=== PATIENT | female | born 1945 | race Caucasian/White ===

== ENCOUNTER 2017-02-09 09:40 | Inpatient (IN) | payer MEDICARE ==
[2017-02-06 11:19] LABS: BLOOD UREA NITROGEN 19 mg/dL (7-18)
[2017-02-06 11:22] LABS: PATH.CAST-FLAG NOT PRESENT; SPERM-FLAG NOT PRESENT; SRC-FLAG NOT PRESENT; XTAL-FLAG NOT PRESENT; YLC-FLAG NOT PRESENT
[2017-02-06 11:22] LABS: ASPARTATE AMINO TRANSFERASE 30 U/L (15-37)
[~2017-02-09] VITALS: Ht 167.6 cm; Wt 104.0 kg
[~2017-02-09 09:40] MED LIST: ASPI-621 PO; ATOR80TA75 PO; BUPIVACAINE/PF 0.5% ONE; CHOL10003 PO; CYAN25009 PO; EPINEPHRINE 1 MG/ML, 1ML ONE; FENTANYL PF 250 MCG/5ML ONE; FURO20TA3 PO; INSU100C5 SQ-INSULIN; INSU100V8 SQ; LEVO50TA5 PO; LISI40TA PO; METF10002 PO; METO25TA35 PO; MIDAZOLAM 1 MG/ML, 2ML ONE; NEOSPORIN OINT, 15GM ONE; OMEP-110 PO; PRIM50TA PO
[2017-02-09] MEDS ORDERED: LACTATED RINGERS 1,000 ML IV SCH (10:41)
[2017-02-09 10:46] VITALS: BP 121/64
[2017-02-09] MEDS ORDERED: EPINEPHRINE 1 MG/ML, 1ML ONE (13:51)
[2017-02-09] MEDS ORDERED: PROPOFOL 10 MG/ML, 20ML ONE (13:51)
[2017-02-09] MEDS ORDERED: CEFAZOLIN 1,000 MG ONE (13:51)
[2017-02-09] MEDS ORDERED: EPHEDRINE 50 MG/ML, 1ML ONE (13:51)
[2017-02-09] MEDS ORDERED: ROCURONIUM 10 MG/ML ONE (13:51)
[2017-02-09] MEDS ORDERED: SUCCINYLCHOLINE 20 MG/ML, 10ML ONE (13:51)
[2017-02-09] MEDS ORDERED: DIPHENHYDRAMINE 50 MG CAPSULE PO PRN (14:00)
[2017-02-09] MEDS ORDERED: PROMETHAZINE 25 MG/ML, 1ML IM PRN (14:00)
[2017-02-09] MEDS ORDERED: HYDROcodone/APAP 5/325 TABLET PO PRN (14:00)
[2017-02-09] MEDS ORDERED: ONDANSETRON 2MG/ML, 2ML IVPush PRN ×2 (14:00→14:30)
[2017-02-09] MEDS ORDERED: ACETAMINOPHEN 325 MG TABLET PO PRN (14:30)
[2017-02-09] MEDS ORDERED: METOCLOPRAMIDE 5 MG/ML, 2ML IV PRN (14:30)
[2017-02-09] MEDS ORDERED: LABETALOL 5MG/ML, 20ML IV PRN (14:30)
[2017-02-09] MEDS ORDERED: OXYcodone 5 MG/5 ML ORAL.SOL UDC PO PRN (14:30)
[2017-02-09] MEDS ORDERED: hydrALAzine 20 MG/ML, 1ML IV PRN (14:30)
[2017-02-09] MEDS ORDERED: HYDROmorphone 1 MG/ML, 1ML ONE (15:17)
[2017-02-09] MEDS ORDERED: FENTANYL PF 100 MCG/2ML ONE (15:17)
[2017-02-09] MEDS: FENTANYL PF 100 MCG/2ML IV PRN ×2 (15:20→15:30)
[2017-02-09] MEDS: HYDROmorphone 1 MG/ML, 1ML IV PRN ×4 (15:25→16:00)
[2017-02-09] MEDS ORDERED: ONDANSETRON 2MG/ML, 2ML ONE (15:25)
[2017-02-09] MEDS ORDERED: TEMPLATE NON-FORMULARY MED. (Insulin Aspart** (Novolog**) 0 UNITS) SQ-INSULIN SCH (16:00)
[2017-02-09] MEDS ORDERED: hydrALAzine 20 MG/ML, 1ML ONE (16:14)
[2017-02-09] MEDS: morphine SULFATE 10 MG/ML, 1ML IVPush PRN ×2 (17:25→19:09)
[2017-02-09] MEDS ORDERED: INSULIN ASPART 100 UNITS/ML, PEN SQ-INSULIN SCH (18:17)
[2017-02-09 18:40] VITALS: BP 125/74
[2017-02-09] MEDS: POTASSIUM CHLORIDE 20 MEQ in SODIUM CHLORIDE 0.9% 1,000 ML IV SCH (19:09)
[2017-02-09] MEDS ORDERED: ATORVASTATIN 80 MG TABLET PO SCH (21:00)
[2017-02-09] MEDS ORDERED: PRIMIDONE 50 MG TABLET PO SCH (21:00)
[2017-02-09] MEDS: metFORMIN 500 MG TABLET PO SCH (22:31)
[2017-02-09] MEDS: CEFAZOLIN PMX 2GM/50ML 50 ML IVPB SCH (22:34)
[2017-02-09] MEDS: OXYcodone/APAP 5/325MG TABLET PO PRN (22:35)
[2017-02-09 23:02] VITALS: BP 122/71
[2017-02-09] MEDS: INSULIN DETEMIR 100 UNITS/ML, PEN SQ-INSULIN SCH (23:35)
[2017-02-09] MEDS: INSULIN ASPART 100 UNITS/ML, PEN SQ-INSULIN SCH (23:35)
[2017-02-10 02:49] VITALS: BP 112/68
[2017-02-10] MEDS ORDERED: LEVOTHYROXINE 50 MCG TABLET PO SCH (06:00)
[2017-02-10] MEDS: CEFAZOLIN PMX 2GM/50ML 50 ML IVPB SCH (06:03)
[2017-02-10] MEDS: OXYcodone/APAP 5/325MG TABLET PO PRN (06:07)
[2017-02-10 06:53] VITALS: BP 105/63
[2017-02-10] MEDS ORDERED: OMEPRAZOLE 20 MG CAPSULE.DR PO SCH (07:30)
[2017-02-10] MEDS: POTASSIUM CHLORIDE 20 MEQ in SODIUM CHLORIDE 0.9% 1,000 ML IV SCH (07:45)
[2017-02-10] MEDS: INSULIN ASPART 100 UNITS/ML, PEN SQ-INSULIN SCH (07:46)
[2017-02-10] MEDS ORDERED: CHOLECALCIFEROL 1,000 UNIT TABLET PO SCH (09:00)
[2017-02-10] MEDS ORDERED: METOPROLOL TARTRATE 25 MG TABLET PO SCH (09:00)
[2017-02-10] MEDS ORDERED: LISINOPRIL 20 MG TABLET PO SCH (09:00)
[2017-02-10] MEDS ORDERED: FUROSEMIDE 20 MG TABLET PO SCH (09:00)
[2017-02-10] MEDS: INSULIN DETEMIR 100 UNITS/ML, PEN SQ-INSULIN SCH (09:46)
[2017-02-10] MEDS: metFORMIN 500 MG TABLET PO SCH (09:48)
[2017-02-10] MEDS ORDERED: OXYC-302 PO (11:04)
== END 2017-02-10 11:25 | disposition home or self-care (01) | DRG 459 ==
LOC: ORIP 10:17 → 4NOR 17:06 → DCLOUNGE 02-10 10:47
PROVIDERS: ADMIT Orthopaedic Surgery Orthopaedic Surgery of the Spine; ATTEND Orthopaedic Surgery Orthopaedic Surgery of the Spine
PROC: 0SG80ZZ (ICD-10-PCS; principal; 2017-02-09 12:30)
DX: M46.1 Sacroiliitis, not elsewhere classified (principal); N17.0 Acute kidney failure with tubular necrosis; Z95.1 Presence of aortocoronary bypass graft; Z98.1 Arthrodesis status; I25.10 Atherosclerotic heart disease of native coronary artery without angina pectoris; I11.9 Hypertensive heart disease without heart failure; M81.0 Age-related osteoporosis without current pathological fracture
CPT/HCPCS: 36415; 71020; 72202; 76001; 80053; 81001; 82962; 85025; 93005; J0171; J0690; J1170; J1815; J2250; J2405; J2550; J2704; J3010; J3480; J3490; C1762; C1776; J0330; J0360; J2270; J7030; J7120

== ENCOUNTER 2017-08-07 10:47 | Emergency (ER) | payer MEDICARE ==
[~2017-08-07] VITALS: Ht 167.6 cm; Wt 105.0 kg
[~2017-08-07 10:47] MED LIST changes: +ATOR-2 PO; -ATOR80TA75 PO; -BUPIVACAINE/PF 0.5% ONE; -EPINEPHRINE 1 MG/ML, 1ML ONE; -FENTANYL PF 250 MCG/5ML ONE; -MIDAZOLAM 1 MG/ML, 2ML ONE; -NEOSPORIN OINT, 15GM ONE; +OXYC-302 PO
[2017-08-07] MEDS ORDERED: SODIUM CHLORIDE 0.9% 1,000ML IVBOLUS ONE (11:00)
[2017-08-07 11:04] VITALS: BP 98/47
[2017-08-07 11:23] LABS: RAPID INFLUENZA A Negative (Negative); RAPID INFLUENZA B Negative (Negative)
[2017-08-07 11:28] LABS: BASOPHILS # (AUTO) 0.07 x10^3/uL (0-0.1); BASOPHILS % (AUTO) 1 % (0-1); EOSINOPHILS # (AUTO) 0.03 x10^3/uL (0-0.4); EOSINOPHILS % (AUTO) 0 % (1-7); LYMPHOCYTES # (AUTO) 1.43 x10^3/uL (1-3.4); LYMPHOCYTES % (AUTO) 11 % (22-44); MD NO; MEAN CORPUSCULAR HEMOGLOBIN 25.4 pg (27.0-34.8); MEAN CORPUSCULAR HGB CONC 32.8 g/dL (32.4-35.8); MEAN CORPUSCULAR VOLUME 77.3 fL (80-100); MEAN PLATELET VOLUME 9.4 fL (7.4-10.4); MONOCYTES % (AUTO) 6 % (2-9); NEUTROPHILS # (AUTO) 10.29 x10^3/uL (1.8-6.8); NEUTROPHILS % (AUTO) 82 % (42-75); PLATELET COUNT 237 x10^3/uL (130-400); RED BLOOD COUNT 5.21 x10^6/uL (3.82-5.3); RED CELL DISTRIBUTION WIDTH 15.4 % (9.6-15.2)
[2017-08-07] MEDS ORDERED: PLEASE ENTER HEIGHT AND WEIGHT MC SCH (11:30)
[2017-08-07 11:43] LABS: ALBUMIN 3.3 g/dL (3.4-5.0); ANION GAP 9 mmol/L (5-15); CHLORIDE 97 mmol/L (98-107)
[2017-08-07 11:45] LABS: CREATININE 1.44 mg/dL (0.55-1.02)
== END 2017-08-07 12:55 | disposition home or self-care (01) ==
LOC: ED 12:45
DX: J20.9 Acute bronchitis, unspecified (principal); R11.2 Nausea with vomiting, unspecified; I10 Essential (primary) hypertension; E78.00 Pure hypercholesterolemia, unspecified; K21.9 Gastro-esophageal reflux disease without esophagitis; E11.9 Type 2 diabetes mellitus without complications; Z79.4 Long term (current) use of insulin
CPT/HCPCS: 36415; 71046; 80048; 82040; 85025; 87400; 99285

== ENCOUNTER 2017-08-16 06:35 | Emergency (ER) | payer MEDICARE ==
[~2017-08-16] VITALS: Ht 167.6 cm; Wt 106.0 kg
[2017-08-16] MEDS ORDERED: BENZONATATE 100 MG CAPSULE PO ONE (07:00)
[2017-08-16] MEDS ORDERED: SODIUM CHLORIDE FLUSH 10ML SYR IVF ONE (07:00)
[2017-08-16] MEDS ORDERED: SODIUM CHLORIDE 0.9% 1,000ML IVBOLUS ONE (07:00)
[2017-08-16] MEDS ORDERED: ALBUTEROL/IPRATROPIUM 2.5MG/0.5MG, 3 ML ONE (07:10)
[2017-08-16 07:38] LABS: BASOPHILS # (AUTO) 0.05 x10^3/uL (0-0.1); BASOPHILS % (AUTO) 1 % (0-1); EOSINOPHILS # (AUTO) 0.11 x10^3/uL (0-0.4); EOSINOPHILS % (AUTO) 2 % (1-7); LYMPHOCYTES # (AUTO) 1.65 x10^3/uL (1-3.4); LYMPHOCYTES % (AUTO) 22 % (22-44); MD NO; MEAN CORPUSCULAR HEMOGLOBIN 25.2 pg (27.0-34.8); MEAN CORPUSCULAR HGB CONC 32.7 g/dL (32.4-35.8); MEAN CORPUSCULAR VOLUME 77.1 fL (80-100); MEAN PLATELET VOLUME 7.8 fL (7.4-10.4); MONOCYTES # (AUTO) 0.57 x10^3/uL (0.2-0.8); MONOCYTES % (AUTO) 8 % (2-9); NEUTROPHILS # (AUTO) 4.99 x10^3/uL (1.8-6.8); NEUTROPHILS % (AUTO) 68 % (42-75); PLATELET COUNT 423 x10^3/uL (130-400); RED BLOOD COUNT 4.78 x10^6/uL (3.82-5.3); RED CELL DISTRIBUTION WIDTH 15.7 % (9.6-15.2)
[2017-08-16 07:48] LABS: ALBUMIN 3.2 g/dL (3.4-5.0); ANION GAP 9 mmol/L (5-15); CALCIUM 9.1 mg/dL (8.5-10.1); CHLORIDE 101 mmol/L (98-107); CREATININE 1.16 mg/dL (0.55-1.02)
[2017-08-16 07:53] LABS: TROPONIN I < 0.015 ng/mL (0.000-0.045)
[2017-08-16] MEDS ORDERED: CEFTRIAXONE PMX 1GM/50ML 50 ML ONE (07:57)
[2017-08-16 08:57] VITALS: BP 126/63
== END 2017-08-16 08:59 | disposition home or self-care (01) ==
LOC: ED 07:03
DX: J12.9 Viral pneumonia, unspecified (principal); E11.9 Type 2 diabetes mellitus without complications; K21.9 Gastro-esophageal reflux disease without esophagitis; I10 Essential (primary) hypertension; E07.9 Disorder of thyroid, unspecified
CPT/HCPCS: 36415; 71046; 80048; 82040; 83605; 83880; 84484; 85025; 87040; 93005; 96360; 96361; 99285; J7030

== ENCOUNTER → 2018-01-15 | Outpatient (CLI) | payer MEDICARE ==
[~2018-01-15] MED LIST changes: +OMNIPAQUE 350 MG/ML, 75ML BOTTLE ONE
== END | disposition home or self-care (01) ==
LOC: CFH 12:50
PROVIDERS: ATTEND Internal Medicine
DX: R91.1 Solitary pulmonary nodule (principal)
CPT/HCPCS: 71260; 82565; Q9967

== ENCOUNTER → 2018-01-29 | Outpatient (CLI) | payer MEDICARE ==
[~2018-01-29] MED LIST changes: -OMNIPAQUE 350 MG/ML, 75ML BOTTLE ONE
== END | disposition home or self-care (01) ==
LOC: CFH 07:53
PROVIDERS: ATTEND Internal Medicine Gastroenterology
DX: K44.9 Diaphragmatic hernia without obstruction or gangrene (principal); K21.9 Gastro-esophageal reflux disease without esophagitis; K92.1 Melena
CPT/HCPCS: 74220

== ENCOUNTER 2018-05-15 10:00 | Emergency (ER) | payer MEDICARE ==
[~2018-05-15] VITALS: Ht 167.6 cm; Wt 106.7 kg
[2018-05-15 10:20] VITALS: BP 135/66
== END 2018-05-15 12:41 | disposition home or self-care (01) ==
LOC: ED 10:30
DX: S80.12XA Contusion of left lower leg, initial encounter (principal); S20.212A Contusion of left front wall of thorax, initial encounter; S09.90XA Unspecified injury of head, initial encounter; S50.812A Abrasion of left forearm, initial encounter; I11.9 Hypertensive heart disease without heart failure; K21.9 Gastro-esophageal reflux disease without esophagitis; E78.00 Pure hypercholesterolemia, unspecified; E11.9 Type 2 diabetes mellitus without complications; Z86.39 Personal history of other endocrine, nutritional and metabolic disease; Z95.1 Presence of aortocoronary bypass graft; W05.0XXA Fall from non-moving wheelchair, initial encounter; Y93.89 Activity, other specified; Y99.8 Other external cause status; Y92.89 Other specified places as the place of occurrence of the external cause
CPT/HCPCS: 70450; 99284

== ENCOUNTER 2018-07-29 11:29 | Observation (INO) | payer MEDICARE ==
[~2018-07-29] VITALS: Ht 167.6 cm; Wt 108.7 kg
[~2018-07-29 11:29] MED LIST changes: -ASPI-621 PO; +ASPI81TA45 PO
[2018-07-29] MEDS ORDERED: ASPIRIN 81 MG TABLET CHEW ONE (11:56)
[2018-07-29] MEDS ORDERED: SODIUM CHLORIDE FLUSH 10ML SYR IVF ONE (12:00)
[2018-07-29] MEDS ORDERED: ASPIRIN 81 MG TABLET CHEW PO ONE (12:00)
--- NOTE | 2018-07-29 12:02 | NUR ---
PATIENT GOWNED, CONNECTED TO MONITORS ON ARRIVAL TO ROOM.
--- NOTE | 2018-07-29 12:02 | NUR ---
EKG DONE ON ARRIVAL TO ROOM.
[2018-07-29 12:17] LABS: BASOPHILS # (AUTO) 0.03 x10^3/uL (0-0.1); BASOPHILS % (AUTO) 1 % (0-1); EOSINOPHILS # (AUTO) 0.07 x10^3/uL (0-0.4); EOSINOPHILS % (AUTO) 1 % (1-7); LYMPHOCYTES % (AUTO) 27 % (22-44); MD NO; MEAN CORPUSCULAR HEMOGLOBIN 27.4 pg (27.0-34.8); MEAN CORPUSCULAR HGB CONC 33.4 g/dL (32.4-35.8); MEAN CORPUSCULAR VOLUME 82.1 fL (80-100); MEAN PLATELET VOLUME 8.8 fL (7.4-10.4); MONOCYTES # (AUTO) 0.26 x10^3/uL (0.2-0.8); MONOCYTES % (AUTO) 5 % (2-9); NEUTROPHILS # (AUTO) 3.51 x10^3/uL (1.8-6.8); NEUTROPHILS % (AUTO) 67 % (42-75); PLATELET COUNT 233 x10^3/uL (130-400); RED BLOOD COUNT 4.93 x10^6/uL (3.82-5.3); RED CELL DISTRIBUTION WIDTH 15.4 % (9.6-15.2)
[2018-07-29 12:30] LABS: ALANINE AMINOTRANSFERASE 28 U/L (12-78); ALBUMIN 3.5 g/dL (3.4-5.0); ANION GAP 6 mmol/L (5-15); CALCIUM 8.5 mg/dL (8.5-10.1); CHLORIDE 104 mmol/L (98-107); CREATININE 1.33 mg/dL (0.55-1.02)
[2018-07-29 12:35] LABS: ALKALINE PHOSPHATASE 148 U/L (45-117); BILIRUBIN,TOTAL 0.4 mg/dL (0.2-1.0); TOTAL PROTEIN 7.6 g/dL (6.4-8.2); TROPONIN I < 0.015 ng/mL (0.000-0.045)
[2018-07-29] MEDS ORDERED: SODIUM CHLORIDE FLUSH 10ML SYR IVF PRN (13:30)
[2018-07-29 13:52] LABS: HCT (SEDRATE) 40.5 % (34.6-47.8)
[2018-07-29] MEDS ORDERED: BISACODYL 10 MG SUPP PR PRN (14:00)
[2018-07-29] MEDS ORDERED: NITROGLYCERIN 0.4 MG BOTTLE (25 TABS) SL PRN (14:00)
[2018-07-29] MEDS ORDERED: ONDANSETRON ODT 4 MG PO PRN (14:00)
[2018-07-29] MEDS ORDERED: ONDANSETRON 2MG/ML, 2ML IVPush PRN (14:00)
[2018-07-29] MEDS ORDERED: POLYETHYLENE GLYCOL 17 GM PACKET PO PRN (14:00)
[2018-07-29] MEDS ORDERED: LIDODERM 5% PATCH TD PRN (14:00)
[2018-07-29] MEDS ORDERED: DOCUSATE 100 MG CAPSULE PO PRN (14:00)
[2018-07-29] MEDS ORDERED: hydrALAzine 20 MG/ML, 1ML IVPush PRN (14:00)
[2018-07-29] MEDS ORDERED: ACETAMINOPHEN 325 MG TABLET PO PRN (14:00)
[2018-07-29] MEDS ORDERED: ZOLPIDEM 5MG TABLET PO PRN (14:00)
--- NOTE | 2018-07-29 14:08 | NUR ---
PATIENT REPORT TO FLOOR
[2018-07-29 14:14] LABS: FREE T4 (FREE THYROXINE) 1.02 ng/dL (0.76-1.46); TROPONIN I < 0.015 ng/mL (0.000-0.045)
--- NOTE | 2018-07-29 14:14 | NUR ---
PLAN TO ESTABLISH LINE AND TRANSFER TO CT THEN FLOOR
[2018-07-29 14:21] LABS: HEMOGLOBIN A1C 9.6 % (4.2-6.3)
[2018-07-29] MEDS ORDERED: OXYcodone/APAP 5/325MG TABLET ONE (14:25)
[2018-07-29 15:00] VITALS: BP 150/78
[2018-07-29] MEDS ORDERED: OMNIPAQUE 350 MG/ML, 100ML BOTTLE ONE (15:26)
[2018-07-29] MEDS ORDERED: TEMPLATE NON-FORMULARY MED. (Insulin Aspart** (Novolog**) 0 UNITS) SQ-INSULIN SCH (16:00)
[2018-07-29] MEDS: INSULIN LISPRO 100 UNITS/ML, PEN SQ-INSULIN SCH ×2 (16:26→20:47)
[2018-07-29] MEDS: SODIUM CHLORIDE 0.9% 1,000 ML IV SCH (16:26)
[2018-07-29] MEDS: OXYcodone/APAP 5/325MG TABLET PO PRN (18:50)
[2018-07-29 19:26] VITALS: BP 115/64
[2018-07-29 19:51] LABS: TROPONIN I < 0.015 ng/mL (0.000-0.045)
[2018-07-29] MEDS ORDERED: PRIMIDONE 250 MG TABLET ONE (20:35)
[2018-07-29] MEDS: metFORMIN 500 MG TABLET PO SCH (20:45)
[2018-07-29] MEDS: INSULIN GLARGINE 100 UNITS/ML, PEN SQ-INSULIN SCH (20:46)
[2018-07-29] MEDS ORDERED: PRIMIDONE 50 MG TABLET PO SCH (21:00)
[2018-07-29] MEDS ORDERED: ATORVASTATIN 80 MG TABLET PO SCH (21:00)
[2018-07-30 00:45] VITALS: BP 131/75
[2018-07-30] MEDS: OXYcodone/APAP 5/325MG TABLET PO PRN (04:13)
[2018-07-30 05:36] LABS: BASOPHILS # (AUTO) 0.03 x10^3/uL (0-0.1); BASOPHILS % (AUTO) 1 % (0-1); EOSINOPHILS # (AUTO) 0.12 x10^3/uL (0-0.4); EOSINOPHILS % (AUTO) 2 % (1-7); LYMPHOCYTES # (AUTO) 1.73 x10^3/uL (1-3.4); LYMPHOCYTES % (AUTO) 29 % (22-44); MD NO; MEAN CORPUSCULAR HEMOGLOBIN 27.5 pg (27.0-34.8); MEAN CORPUSCULAR HGB CONC 33.2 g/dL (32.4-35.8); MEAN PLATELET VOLUME 8.7 fL (7.4-10.4); MONOCYTES # (AUTO) 0.49 x10^3/uL (0.2-0.8); MONOCYTES % (AUTO) 8 % (2-9); NEUTROPHILS # (AUTO) 3.68 x10^3/uL (1.8-6.8); NEUTROPHILS % (AUTO) 61 % (42-75); PLATELET COUNT 222 x10^3/uL (130-400); RED BLOOD COUNT 4.63 x10^6/uL (3.82-5.3); RED CELL DISTRIBUTION WIDTH 14.9 % (9.6-15.2)
[2018-07-30 05:46] LABS: CALCIUM 8.5 mg/dL (8.5-10.1); CHLORIDE 108 mmol/L (98-107)
[2018-07-30] MEDS: SODIUM CHLORIDE 0.9% 1,000 ML IV SCH (05:48)
[2018-07-30 05:52] LABS: ANION GAP 6 mmol/L (5-15); CHOL/HDL RATIO 3.9; CHOLESTEROL, TOTAL 144 mg/dL (140-239); CREATININE 1.04 mg/dL (0.55-1.02); HDL CHOL % 26 % (28-40); HDL CHOLESTEROL (DIRECT) 37 mg/dL (40-60); LDL CHOLESTEROL,CALCULATED 75 mg/dL (54-169); TRIGLYCERIDES 160 mg/dL (50-200); VLDL CHOLESTEROL 32 mg/dL (0-25)
[2018-07-30] MEDS ORDERED: ASPIRIN 325 MG TABLET EC PO SCH (06:00)
[2018-07-30] MEDS ORDERED: LEVOTHYROXINE 50 MCG TABLET PO SCH (06:00)
[2018-07-30 06:52] VITALS: BP 114/71
[2018-07-30] MEDS: INSULIN LISPRO 100 UNITS/ML, PEN SQ-INSULIN SCH ×2 (07:00→11:00)
[2018-07-30] MEDS ORDERED: REGADENOSON 0.4 MG/5 ML SYRINGE ONE (08:09)
[2018-07-30] MEDS ORDERED: CHOLECALCIFEROL 1,000 UNIT TABLET PO SCH (09:00)
[2018-07-30] MEDS ORDERED: LISINOPRIL 20 MG TABLET PO SCH (09:00)
[2018-07-30] MEDS ORDERED: FUROSEMIDE 20 MG TABLET PO SCH (09:00)
[2018-07-30] MEDS ORDERED: CYANOCOBALAMIN 1,000 MCG TABLET PO SCH (09:00)
[2018-07-30] MEDS ORDERED: OMEPRAZOLE 20 MG CAPSULE.DR PO SCH (09:00)
[2018-07-30] MEDS ORDERED: METOPROLOL TARTRATE 25 MG TABLET PO SCH (09:00)
[2018-07-30] MEDS: metFORMIN 500 MG TABLET PO SCH (11:34)
[2018-07-30] MEDS: INSULIN GLARGINE 100 UNITS/ML, PEN SQ-INSULIN SCH (11:48)
[2018-07-30 13:02] VITALS: BP 121/73
[2018-07-30] MEDS ORDERED: LIDO700A20 TD (15:05)
== END 2018-07-30 17:30 | disposition home or self-care (01) ==
LOC: ED 12:50 → INTOOBSV 13:20 → EDIP 13:20 → UNDOADMOB 13:20 → EDIP 13:33 → 5SO 14:42 → EDIP 14:42 → 5SO 14:42 → UNDODISOB 07-30 17:30
PROVIDERS: ADMIT Hospitalist; ATTEND Hospitalist
DX: R07.81 Pleurodynia (principal); E78.00 Pure hypercholesterolemia, unspecified; E11.65 Type 2 diabetes mellitus with hyperglycemia; E03.9 Hypothyroidism, unspecified; E78.5 Hyperlipidemia, unspecified; I10 Essential (primary) hypertension; I25.110 Atherosclerotic heart disease of native coronary artery with unstable angina pectoris; Z82.49 Family history of ischemic heart disease and other diseases of the circulatory system; Z90.49 Acquired absence of other specified parts of digestive tract; Z95.1 Presence of aortocoronary bypass graft; Z95.5 Presence of coronary angioplasty implant and graft; I25.2 Old myocardial infarction; N28.9 Disorder of kidney and ureter, unspecified
CPT/HCPCS: 36415; 71045; 71101; 71275; 74176; 78452; 80048; 80053; 80061; 82962; 83036; 83690; 83880; 84439; 84443; 84484; 85025; 85651; 93005; 93017; 93306; 96360; 96361; 96372; 99284; A9502; C9898; G0378; J1815; J2785; J7030; Q9967; 99285

== ENCOUNTER 2018-09-03 17:27 | Emergency (ER) | payer MEDICARE ==
[~2018-09-03] VITALS: Ht 167.6 cm; Wt 110.7 kg
[~2018-09-03 17:27] MED LIST changes: +LIDO700A20 TD
[2018-09-03 18:18] LABS: BASOPHILS # (AUTO) 0.07 x10^3/uL (0-0.1); BASOPHILS % (AUTO) 1 % (0-1); EOSINOPHILS # (AUTO) 0.12 x10^3/uL (0-0.4); EOSINOPHILS % (AUTO) 2 % (1-7); LYMPHOCYTES % (AUTO) 25 % (22-44); MD NO; MEAN CORPUSCULAR HEMOGLOBIN 27.1 pg (27.0-34.8); MEAN CORPUSCULAR HGB CONC 33.4 g/dL (32.4-35.8); MEAN CORPUSCULAR VOLUME 81.1 fL (80-100); MEAN PLATELET VOLUME 8.9 fL (7.4-10.4); MONOCYTES # (AUTO) 0.38 x10^3/uL (0.2-0.8); MONOCYTES % (AUTO) 6 % (2-9); NEUTROPHILS # (AUTO) 4.17 x10^3/uL (1.8-6.8); NEUTROPHILS % (AUTO) 66 % (42-75); PLATELET COUNT 221 x10^3/uL (130-400); RED BLOOD COUNT 4.76 x10^6/uL (3.82-5.3); RED CELL DISTRIBUTION WIDTH 15.4 % (9.6-15.2)
[2018-09-03 18:31] LABS: ALBUMIN 3.5 g/dL (3.4-5.0); CALCIUM 8.6 mg/dL (8.5-10.1); CHLORIDE 104 mmol/L (98-107); CREATININE 1.47 mg/dL (0.55-1.02)
[2018-09-03 18:36] LABS: ANION GAP 10 mmol/L (5-15)
--- NOTE | 2018-09-03 19:31 | NUR ---
PT REPORTS COUGH X APPROX 1.5 WEEKS , MIDSTERNAL CHEST PAIN 'IT'S REALLY COLD WHEN I BREATHE IN' PER TRIAGE NOTE
[2018-09-03] MEDS ORDERED: PANT20TA3 PO (19:43)
[2018-09-03] MEDS ORDERED: INSU100I32 SQ (19:43)
--- NOTE | 2018-09-03 19:45 | NUR ---
PA CARLOS ENRIQUE AT BED SIDE FOR ER EVAL VSS STABLE PT IS ON RA SATS 98% INTERMITTENT COUGH NO SOB CALL LIGHT WITHIN REACH
[2018-09-03 20:19] LABS: TROPONIN I < 0.015 ng/mL (0.000-0.045)
[2018-09-03 20:38] VITALS: BP 129/64
--- NOTE | 2018-09-03 20:55 | NUR ---
PT RECEIVED BREATHING TX BY RT
[2018-09-03 20:56] LABS: RAPID INFLUENZA A Negative (Negative); RAPID INFLUENZA B Negative (Negative)
[2018-09-03] MEDS ORDERED: ALBUTEROL/IPRATROPIUM 2.5MG/0.5MG, 3 ML NPPB ONE (21:00)
--- NOTE | 2018-09-03 21:26 | NUR ---
Patient/Caregiver given discharge instructions and they have confirmed that they understand the instructions. Patient ambulatory with steady gait.
== END 2018-09-03 21:26 | disposition home or self-care (01) ==
LOC: ED 20:26
DX: J06.9 Acute upper respiratory infection, unspecified (principal); I10 Essential (primary) hypertension; E11.9 Type 2 diabetes mellitus without complications; E78.5 Hyperlipidemia, unspecified; Z90.49 Acquired absence of other specified parts of digestive tract; Z95.1 Presence of aortocoronary bypass graft; Z95.5 Presence of coronary angioplasty implant and graft
CPT/HCPCS: 36415; 71045; 80048; 82040; 83605; 84145; 84484; 85025; 87040; 87400; 93005; 94640; 99284; J7620

== ENCOUNTER → 2018-11-21 | Outpatient (CLI) | payer MEDICARE ==
[~2018-11-21] MED LIST changes: +INSU100I32 SQ; +PANT20TA3 PO
== END | disposition home or self-care (01) ==
LOC: CFH 06:52
PROVIDERS: ATTEND Internal Medicine
DX: R10.84 Generalized abdominal pain (principal); Z90.49 Acquired absence of other specified parts of digestive tract
CPT/HCPCS: 76700

== ENCOUNTER → 2019-08-15 | Outpatient (CLI) | payer MEDICARE ==
[~2019-08-15] MED LIST changes: +CLOP75TA52 PO
== END | disposition home or self-care (01) ==
LOC: CFH 10:03
PROVIDERS: ATTEND Internal Medicine Critical Care Medicine
DX: R91.8 Other nonspecific abnormal finding of lung field (principal); M43.26 Fusion of spine, lumbar region; I70.8 Atherosclerosis of other arteries; E04.1 Nontoxic single thyroid nodule
CPT/HCPCS: 71250; 74018

== ENCOUNTER 2019-08-23 11:29 | Emergency (ER) | payer MEDICARE ==
[~2019-08-23] VITALS: Ht 167.6 cm; Wt 103.0 kg
[2019-08-23] MEDS ORDERED: HYDROmorphone 1 MG/ML, 1ML INJ IVPush PRN (12:00)
[2019-08-23 12:12] VITALS: BP 129/69
[2019-08-23 12:17] LABS: BASOPHILS # (AUTO) 0.04 x10^3/uL (0-0.1); BASOPHILS % (AUTO) 1 % (0-1); EOSINOPHILS # (AUTO) 0.07 x10^3/uL (0-0.4); EOSINOPHILS % (AUTO) 1 % (1-7); LYMPHOCYTES # (AUTO) 1.65 x10^3/uL (1-3.4); LYMPHOCYTES % (AUTO) 22 % (22-44); MD NO; MEAN CORPUSCULAR HEMOGLOBIN 26.9 pg (27.0-34.8); MEAN CORPUSCULAR HGB CONC 32.8 g/dL (32.4-35.8); MEAN PLATELET VOLUME 8.7 fL (7.4-10.4); MONOCYTES # (AUTO) 0.58 x10^3/uL (0.2-0.8); MONOCYTES % (AUTO) 8 % (2-9); NEUTROPHILS # (AUTO) 5.27 x10^3/uL (1.8-6.8); NEUTROPHILS % (AUTO) 69 % (42-75); PLATELET COUNT 241 x10^3/uL (130-400); RED BLOOD COUNT 4.94 x10^6/uL (3.82-5.3); RED CELL DISTRIBUTION WIDTH 17.4 % (9.6-15.2)
[2019-08-23] MEDS ORDERED: ONDANSETRON 2MG/ML, 2ML ONE (12:21)
[2019-08-23] MEDS ORDERED: HYDROmorphone 1 MG/ML, 1ML INJ ONE (12:21)
[2019-08-23 12:29] LABS: ALANINE AMINOTRANSFERASE 33 U/L (12-78); ALBUMIN 3.4 g/dL (3.4-5.0); ANION GAP 3 mmol/L (5-15); CALCIUM 9.1 mg/dL (8.5-10.1); CHLORIDE 103 mmol/L (98-107); CREATININE 1.15 mg/dL (0.55-1.02)
[2019-08-23 12:33] LABS: ALKALINE PHOSPHATASE 111 U/L (45-117); BILIRUBIN,TOTAL 0.4 mg/dL (0.2-1.0); TOTAL PROTEIN 7.7 g/dL (6.4-8.2); TROPONIN I < 0.015 ng/mL (0.000-0.045)
[2019-08-23] MEDS ORDERED: ONDANSETRON 2MG/ML, 2ML IVPush ONE (13:00)
[2019-08-23] MEDS ORDERED: SODIUM CHLORIDE 0.9% 1,000ML IVBOLUS ONE (13:00)
[2019-08-23] MEDS ORDERED: SODIUM CHLORIDE FLUSH 10ML SYR IVF ONE (13:00)
[2019-08-23 13:15] LABS: MICROSCOPIC AUTO
[2019-08-23] MEDS ORDERED: OMNIPAQUE 350 MG/ML, 100ML BOTTLE ONE (13:23)
[2019-08-23 13:27] LABS: CULTURE INDICATED? YES
[2019-08-23] MEDS ORDERED: CEFTRIAXONE PMX 1GM/50ML 50 ML ONE (13:55)
[2019-08-23] MEDS ORDERED: CEFTRIAXONE PMX 1GM/50ML 50 ML IV ONE (14:00)
== END 2019-08-23 15:24 | disposition home or self-care (01) ==
LOC: ED 12:40
DX: N30.00 Acute cystitis without hematuria (principal); R10.11 Right upper quadrant pain; R11.0 Nausea; I10 Essential (primary) hypertension; E11.9 Type 2 diabetes mellitus without complications; E78.5 Hyperlipidemia, unspecified; I25.10 Atherosclerotic heart disease of native coronary artery without angina pectoris; Z90.49 Acquired absence of other specified parts of digestive tract
CPT/HCPCS: 36415; 74177; 80053; 81001; 83605; 83690; 84484; 85025; 85379; 87077; 87086; 87186; 93005; 96361; 96365; 96375; 99284; J0696; J1170; J2405; J7030; Q9967